=== PATIENT | female | born 1925 | race Caucasian/White ===

== ENCOUNTER → 2016-11-19 | Day surgery (SDC) | payer OTHER, MEDICARE ==
--- NOTE | 2016-11-23 15:15 | PATH ---
Surgical Pathology Report Patient Name: JACK SEGURA [facility]. Rec. #: [id number] /Age/Gender: 1925 (Age: 89) / F Account: [id number] Location: [facility] U Taken: 11/19/2016 Received: 11/19/2016 Reported: 11/23/2016 Physicians: Ezequiel Reynaga M.D. Specimen(s) Received RIGHT BREAST 2:00, 10CM FN CORE BX Clinical History Mammographic findings: Highly suspicious/malignant Ultrasound findings: Suspicious Final Diagnosis BREAST, RIGHT, 2:00, 10 CM FN, CORE BIOPSY: INVASIVE DUCTAL CARCINOMA, WELL DIFFERENTIATED WITH ASSOCIATED CALCIFICATIONS, MEASURING 5 MM IN GREATEST DIMENSION IN THIS MATERIAL. Results of Estrogen Receptor (ER) and Progesterone Receptor ([place]) studies performed at [facility] are as follows: ER (clone [id number] mouse monoclonal antibody by [employer]): 100 % nuclear staining with strong intensity (Positive). [place] (clone16 mouse monoclonal antibody by Leica):100 % nuclear staining with strong intensity (Positive). Results of HER-2 and Ki67 studies will be reported separately in an addendum. Positive and negative controls (internal if applicable) show appropriate results. Formalin fixation time ([id number] hrs) exceeds current ASCO/CAP recommendations for ER, [place] & Her2 testing (6-72 hrs). Negative results must be interpreted with caution as false negatives may occur. Cold ischemic time is within recommended guidelines. Electronically Signed Navya Aguilar M.D. Addendum Reported: 11/24/2016 Addendum Diagnosis Results of Her2 (IHC) & Ki-67 studies performed at [place], [place] ([id number]) are as follows: Her2 IHC (EP3 from [employer], formerly known as [id number], using Ob Polymer Refine detection kit): 0 (Negative). Ki-67: ~10% (Low). Positive and negative controls (internal if applicable) show appropriate results. Navya Aguilar M.D. Gross Description Received in formalin, labeled "right breast 2:00, 10 cmfn," is a 2.5 x 1.8 x 0.3 cm aggregate of multiple fonseca-yellow, irregular to cylindrical portions of fibroadipose tissue admixed with blood clot. The formalin is filtered and the specimen is entirely submitted in one cassette. Time to formalin fixation: < 1 minute Total formalin fixation time: Approximately 74 hours. 11/22/201611/22/2016
--- NOTE | 2016-11-26 15:25 | OP ---
DATE OF OPERATION: 11/19/2016 PREOPERATIVE DIAGNOSIS: Right breast mass, 2 o'clock, 10 cm from the nipple. POSTOPERATIVE DIAGNOSIS: Right breast mass, 2 o'clock, 10 cm from the nipple. PROCEDURE: Right ultrasound guided core biopsy with U-shaped clip placement. ANESTHESIA: Local. ATTENDING SURGEON: Ezequiel Reynaga M.D. ESTIMATED BLOOD LOSS: Minimal. COMPLICATIONS: None. DESCRIPTION OF PROCEDURE: Patient was made aware of risks and benefits of the procedure and consented. She is placed in a supine position. Under sterile conditions, with 1% lidocaine for local anesthesia, a small mj was made in the skin. Using a 10-gauge suction biopsy, under ultrasound guidance, six cores were obtained. Likewise under ultrasound guidance, a U-shaped clip was placed into the biopsy region. Tissue submitted for permanent section. Steri-Strip and a sterile bandage was applied. Patient tolerated the procedure well. Will contact him with results. EZEQUIEL REYNAGA M.D. [id number] MTDD
== END | disposition home or self-care (01) ==
LOC: FRADUS-SUR 15:18
PROVIDERS: ATTEND Surgery Surgical Oncology
PROC: 0HBT3ZX Excision of Right Breast, Percutaneous Approach, Diagnostic (ICD-10-PCS; principal; 2016-11-19)
DX: N63 Unspecified lump in breast (principal); C50.211 Malignant neoplasm of upper-inner quadrant of right female breast
CPT/HCPCS: 19083; 87899; 88305-TC; 88342-TC; A4648; G0206-TC

== ENCOUNTER 2016-12-14 07:09 | Day surgery (SDC) | payer OTHER, MEDICARE ==
--- NOTE | 2016-12-07 09:41 | HP ---
Admitting History and Physical - Primary Care Physician PCP: Zelalem Mc - Admission Chief Complaint: right breast cancer History of Present Illness: Patient is an 89 yo female with h/o of left breast breast cancer and mastectomy (1987), who was noted to have a right 2 o'clock suspicious lesion on US. Patient underwent a right breast US core bx c/w invasive ductal carcinoma ER/NM positive (11/19/2016). Patient is now presenting for a right breast WE with NL. History Source: Patient Limitations to Obtaining History: No Limitations - Past Medical History Cardiovascular: Yes: HTN, Hyperlipdemia Heme/Onc: Yes: Cancer (left breast 1987) - Past Surgical History Past Surgical History: Yes: Breast Biopsy (right exc bx 1974), Mastectomy (Left mastectomy 1987) Home Medications - Allergies Allergies/Adverse Reactions: Allergies Allergy/AdvReac Type Severity Reaction Status Date / Time No Known Allergies Allergy Verified 12/07/16 09:41 - Home Medications Home Medications (free text): atorvastatin 20 mg qd. lisinopril 20 mg qd. amlodipine 5 mg qd. Hctz 12.5 mg qd Family Disease History - Family Disease History Family Disease History: CA: Sister (breast cancer at 34) Review of Systems - Review of Systems Cardiovascular: reports: No Symptoms Respiratory: reports: No Symptoms Physical Examination Constitutional: Yes: Well Nourished Respiratory: Yes: CTA Bilaterally Breast(s): Yes: Right (breast is diffusely nodular without suspicious masses or adenopathy noted bilaterally) Problem List - Problems (1) Breast cancer, right Code(s): C50.911 - MALIGNANT NEOPLASM OF UNSP SITE OF RIGHT FEMALE BREAST Qualifiers: Breast location: upper inner quadrant of breast Patient gender: female Qualified Code(s): C50.211 - Malignant neoplasm of upper-inner quadrant of right female breast
[2016-12-07 11:35] VITALS: BMI 25.3
[2016-12-14] MEDS ORDERED: MIDAZOLAM HCL 2 MG/2 ML SINGLE DOSE VIAL ONE (11:26)
[2016-12-14] MEDS ORDERED: PROPOFOL 20 ML ONE (11:39)
[2016-12-14] MEDS ORDERED: ONDANSETRON 4 MG/2 ML VIAL ONE (11:46)
[2016-12-14] MEDS ORDERED: ceFAZolin SODIUM 1 GM VIAL ONE (11:46)
[2016-12-14] MEDS ORDERED: DEXAMETHASONE SOD PHOSPHATE 4 MG/1 ML VIAL ONE (11:46)
[2016-12-14] MEDS ORDERED: BUPIVACAINE HCL 0.25% 125 MG/50 ML VIAL ONE (11:52)
[2016-12-14] MEDS ORDERED: BUPIVACAINE HCL/PF 0.5% (5MG/ML) 10 ML VIAL ONE (11:52)
[2016-12-14] MEDS ORDERED: ePHEDrine SULFATE 50 MG/1 ML AMPULE ONE (11:57)
[2016-12-14] MEDS ORDERED: KETOROLAC TROMETHAMINE 30 MG/1 ML VIAL IVPUSH PRN (12:47)
[2016-12-14] MEDS ORDERED: DEXTROSE 5%-0.45% SALINE 1,000 ML IV SCH (13:00)
[2016-12-14] MEDS ORDERED: LACTATED RINGERS SOLUTION 1,000 ML IV SCH (13:00)
[2016-12-14] MEDS ORDERED: ONDANSETRON 4 MG/2 ML VIAL IVPUSH PRN (13:23)
[2016-12-14] MEDS ORDERED: ONDANSETRON 4 MG/2 ML VIAL IVPB PRN (13:23)
[2016-12-14 13:49] VITALS: TEMP 97.4
[2016-12-14 14:41] VITALS: BP 136/62; PULSE 80
--- NOTE | 2016-12-15 06:09 | OP ---
DATE OF OPERATION: 12/14/2016 PREOPERATIVE DIAGNOSIS: Right breast cancer. POSTOPERATIVE DIAGNOSIS: Right breast cancer. PROCEDURE: Right mammographically localized wide excision with complex tissue transfer. ANESTHESIA: General intubation. ATTENDING SURGEON: Amelia Reynaga MD CENTRAL OFFICE REPAIRER SUPERVISOR: BECK Buckley ESTIMATED BLOOD LOSS: Minimal. COMPLICATIONS: None. DESCRIPTION OF PROCEDURE: Patient was made aware of the risks and benefits of the procedure and consented. She was placed in the supine position after going to the radiology suite where needle was placed next to the indexed lesion. After general anesthesia was induced, the patient was intubated, and the operative site was prepped and draped in the usual sterile fashion. A radial incision was made next to the needle using electrocautery. Thick skin flaps were made. The needle was then withdrawn through the puncture site, and a wire through the wound. Tissues around the wire were then sharply excised and submitted with a short suture superiorly, long suture lateral. Specimen radiograph confirmed the presence of the indexed lesion. Additional segments were taken superior, inferior, medial, lateral, deep, and anterior, with markers at the new margins. Using electrocautery, tissue flaps were made by taking the breast tissue off the pectoralis muscle in either direction approximately 6-8 cm. The tissue was then rotated in to fill the defect with multiple layers of [id number]-wk-[id number] 2-0 Vicryl. The skin was then closed with deep 3-0 Vicryl followed by running subcuticular 4-0 Monocryl. Steri-Strips and a sterile bandage as well as a compression bra were then applied, and the patient, having tolerated the procedure well, was transferred to the recovery room in excellent condition. AMELIA REYNAGA M.D. [id number]
--- NOTE | 2016-12-16 16:22 | PATH ---
Surgical Pathology Report Patient Name: JACK SEGURA [facility]. Rec. #: [id number] /Age/Gender: 1925 (Age: 89) / F Account: [id number] Location: [facility] Taken: 12/14/2016 Received: 12/14/2016 Reported: 12/16/2016 Physicians: Ezequiel Reynaga M.D. Specimen(s) Received A: RIGHT BREAST WIDE EXCISION B: RIGHT BREAST DEEP MARGIN C: RIGHT BREAST SUPERIOR MARGIN D: RIGHT BREAST MEDIAL MARGIN E: RIGHT BREAST INFERIOR MARGIN F: RIGHT BREAST LATERAL MARGIN G: RIGHT BREAST ANTERIOR MARGIN Clinical History Invasive Final Diagnosis A. BREAST, RIGHT, WIDE EXCISION: INVASIVE DUCTAL CARCINOMA, WELL DIFFERENTIATED (EDIS HISTOLOGIC SCORE OF 5: TUBULE FORMATION 2 OF 3, NUCLEAR PLEOMORPHISM 2 OF 3, MITOTIC RATE 1 OF 3). TUMOR SIZE AND FOCALITY: SINGLE FOCUS, 1.5 CM. SURGICAL RESECTION MARGINS: NEGATIVE FOR CARCINOMA; CARCINOMA IS 1.5 MM FROM THE ANTERIOR ASPECT OF THIS SPECIMEN; AND MORE THAN 2 MM AWAY FROM OTHER ASPECTS. ASSOCIATED PRIOR BIOPSY SITE CHANGES PRESENT. LYMPHOVASCULAR INVASION: NOT DEFINITIVELY IDENTIFIED. PERINEURAL INVASION: NOT DEFINITIVELY IDENTIFIED. SURROUNDING BREAST TISSUE: LOBULAR ATROPHY. PATHOLOGIC STAGING: pT1c pNX (ALSO REFER TO CHECKLIST BELOW) RECEPTOR STATUS: REFER TO CHECKLIST BELOW. B. BREAST, RIGHT, DEEP MARGIN, EXCISION: BENIGN FATTY BREAST TISSUE. NEGATIVE FOR CARCINOMA. C. BREAST, RIGHT, SUPERIOR MARGIN, EXCISION: BENIGN FATTY BREAST TISSUE. NEGATIVE FOR CARCINOMA. D. BREAST, RIGHT, MEDIAL MARGIN, EXCISION: BENIGN BREAST TISSUE. NEGATIVE FOR CARCINOMA. E. BREAST, RIGHT, INFERIOR MARGIN, EXCISION: BENIGN BREAST TISSUE WITH FIBROCYSTIC CHANGE, APOCRINE ADENOSIS AND ASSOCIATED CALCIFIATIONS. NEGATIVE FOR CARCINOMA. F. BREAST, RIGHT, LATERAL MARGIN, EXCISION: BENIGN FATTY BREAST TISSUE. NEGATIVE FOR CARCINOMA. G. BREAST, RIGHT, ANTERIOR MARGIN, EXCISION: BENIGN FATTY BREAST TISSUE. NEGATIVE FOR CARCINOMA. Comments Breast Invasive Carcinoma: Surgical Pathology Cancer Case Summary Based on AJCC/UICC TNM, 7th edition Procedure _x_ Excision with image-guided localization Lymph Node Sampling _x_ not performed Specimen Laterality _x_ Right Tumor Size: Size of Largest Invasive Carcinoma Greatest dimension of largest focus of invasion over 1 mm: 1.5 cm (15 mm) Tumor Focality _x_ Single focus of invasive carcinoma Macroscopic and Microscopic Extent of Tumor Skin _x_ No skin present Nipple _x_ Not applicable (excisions less than total mastectomy) Skeletal Muscle _x_ No skeletal muscle present Ductal Carcinoma In Situ (DCIS) _x_ No DCIS is present at Histologic Type of Invasive Carcinoma : _x_ Invasive carcinoma of no special type (ductal, not otherwise specified) Histologic Grade: (Edis Histologic Score) Tubular Differentiation _x_ Score 2 Nuclear Pleomorphism _x_ Score 2 Mitotic Rate _x_ Score 1 Overall Grade _x_ Grade 1: score of 5 (well differentiated) Margins _x_ Margins uninvolved by invasive carcinoma Distance from closest margin: cannot be determined with additional margins excised Lymph-Vascular Invasion _x_ Not definitively identified Lymph Nodes Total number of lymph nodes examined (sentinel and nonsentinel): 0 Number of sentinel lymph nodes examined: 0 Number of lymph nodes with macrometastases ( > 2 mm): n/a Number of lymph nodes with micrometastases (>0.2 mm to 2 mm and/or >200cells): n/a Number of lymph nodes with isolated tumor cells (=0.2 mm and =200 cells): n/a Size of largest metastatic deposit: n/a Extranodal Extension _x_ Not applicable Pathologic Staging (pTNM) Primary Tumor (Invasive Carcinoma): pT1c Regional Lymph Nodes (pN): pNX Distant Metastasis (pM): n/a Biomarker Studies Results of ER and [place] studies performed on prior biopsy (D1) at [facility] are as follows: ER (clone [id number] mouse monoclonal antibody by [employer]): 100% nuclear staining with strong intensity (Positive). [place] (clone16 mouse monoclonal antibody by [employer]): 100% nuclear staining with strong intensity (Positive). Results of Her2 (IHC) & Ki-67 studies performed on prior biopsy (D1) at [place], [place] ( [id number]) are as follows: Her2 IHC (EP3 from [employer], formerly known as [id number], using Bo Polymer Refine detection kit): 0 (Negative) Ki67: ~10% (Low proliferation index) Positive and negative controls (internal if applicable) showed appropriate results. Formalin fixation and cold ischemic times were within current ASCO/CAP recommendations for ER, [place] and Her2 testing. Electronically Signed Jalen Bernard M.D. Gross Description A. Received in formalin, labeled "right breast wide excision" is a 4.0 x 3.2 x 1.7 cm fonseca-yellow, irregular, portion of fibroadipose tissue with a needle localization wire present. There is a short suture marking the superior aspect and a long suture marking the lateral aspect, per the surgeon. There is no skin or nipple present. The specimen is inked as follows: superior and lateral blue; inferior green; medial yellow; anterior red; deep black. The specimen is serially sectioned from lateral to medial. Sectioning reveals a 1.6 x 1.5 x 1.2 cm fonseca, indurated mass with associated hemorrhage. The mass is focally at 0.1 cm from the deep margin, 0.2 cm from the anterior margin and 0.3 cm from the inferior and medial margins grossly. The remaining margins appear clear of the mass. Vocational Rehabilitation Supervisor sections are submitted in 8 cassettes as follows: 1-medial margin; 5-0-[id number] and sequentially submitted mass each with inferior, anterior and deep margins; 7-superior margin; 8-lateral margin. Time to formalin fixation: 10 minutes Total formalin fixation time: Approximately 30 hours. B. Received in formalin, labeled "deep margin right breast" is a 2.0 x 1.1 x 0.3 cm irregular portion of fibroadipose tissue with a clip marking the new margin, per the surgeon. The new margin is inked green and the specimen is serially sectioned. The specimen is entirely submitted in 2 cassettes. C. Received in formalin, labeled "superior margin right breast" is a 1.8 x 1.3 x 0.4 cm irregular portion of fibroadipose tissue with a clip marking the new margin, per the surgeon. The new margin is inked green and the specimen is serially sectioned. The specimen is entirely submitted in 2 cassettes. D. Received in formalin, labeled "medial margin right breast" is a 1.3 x 0.9 x 0.6 cm irregular portion of fibroadipose tissue with a clip marking the new margin, per the surgeon. The new margin is inked green and the specimen is serially sectioned. The specimen is entirely submitted in one cassette. E. Received in formalin, labeled "inferior margin right breast" is a 1.4 x 1.1 x 0.4 cm irregular portion of fibroadipose tissue with a clip marking the new margin, per the surgeon. The new margin is inked green and the specimen is serially sectioned. The specimen is entirely submitted in one cassette. F. Received in formalin, labeled "lateral margin right breast" is a 1.8 x 1.3 x 0.3 cm irregular portion of fibroadipose tissue with a clip marking the new margin, per the surgeon. The new margin is inked green and the specimen is serially sectioned. The specimen is entirely submitted in 2 cassettes. G. Received in formalin, labeled "anterior margin right breast" is a 1.1 x 1.1 x 0.3 cm irregular portion of fibroadipose tissue with a suture marking the new margin, per the surgeon. The new margin is inked green and the specimen is serially sectioned. The specimen is entirely submitted in one cassette. 12/15/201612/15/2016
== END 2016-12-14 14:35 | disposition home or self-care (01) ==
LOC: FASU 07:09
PROVIDERS: ATTEND Surgery Surgical Oncology
PROC: 0JX60ZB Transfer Chest Subcutaneous Tissue and Fascia with Skin and Subcutaneous Tissue, Open Approach (ICD-10-PCS; 2016-12-14)
PROC: 0HBT0ZZ Excision of Right Breast, Open Approach (ICD-10-PCS; principal; 2016-12-14 10:00)
DX: C50.211 Malignant neoplasm of upper-inner quadrant of right female breast (principal); N60.81 Other benign mammary dysplasias of right breast; N64.89 Other specified disorders of breast; Z90.12 Acquired absence of left breast and nipple; I10 Essential (primary) hypertension; E78.5 Hyperlipidemia, unspecified
CPT/HCPCS: 19281; 88307-TC; 94760